=== PATIENT | female | born 1950 | race Caucasian/White ===

== ENCOUNTER 2018-10-01 14:49 | Emergency (ER) | payer MEDICARE, OTHER ==
[~2018-10-01] VITALS: Ht 157.5 cm; Wt 63.5 kg
[~2018-10-01 14:49] MED LIST: ASPIRIN CHEW81 MG PO; CEFUROXIME250 MG PO; EFFIENT10 MG PO; FAMOTIDINE20 MG PO; GLUCOPHAGE850 MG PO; GLUCOTROL XL10 MG PO; LIPITOR20 MG PO; LISINOPRIL10 MG PO; MELATONIN 3 MG1 EACH PO; NITROSTAT0.4 MG SL; TOPROL XL25 MG PO
--- OUTSIDE RECORDS SUMMARY | 2018-10-01 14:52 | XMS REPORT | Summary of Care ---
Author Author Milton Yip M.A. Organization Unknown Address [facility] Phone Unavailable Care Team Providers Care Fishing Accessories Maker Name Role Phone SIVA GU M.D. Unavailable Unavailable Milton Yip M.A. Unavailable Unavailable IRMA MILLER M.D. Unavailable Unavailable [place], SIVA Rodriguez Unavailable Unavailable Unavailable Unavailable Functional Status Name Dates Details Functional status health issues are not documented Status: Name Dates Details Cognitive status health issues are not documented Status: Problems Name Dates Details CAD, multiple vessel (414.00, I25.10) Status: Active Encounter for diabetic foot exam (250.00, E11.9) Status: Active Lower abdominal pain (789.09, R10.30) Status: Active Severe left groin pain (789.09, R10.30) Status: Active Left hip pain (719.45, M25.552) Status: Active Strain of left hip (843.9, S76.012A) Status: Active Lumbar facet arthropathy (721.3, M47.816) Status: Active Acute lumbar radiculopathy (724.4, M54.16) Status: Active 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, M51.26) Status: Active Greater trochanteric bursitis of left hip (726.5, M70.62) Status: Active Right knee pain (719.46, M25.561) Status: Active Flu-like symptoms (780.99, R68.89) Status: Active Vertigo (780.4, R42) Status: Active Urinary tract infection (599.0, N39.0) Status: Active Acute purulent bronchitis (466.0, J20.8) Status: Active Diabetes mellitus type 2, controlled (250.00, E11.9) Status: Active Hypothyroidism (244.9, E03.9) Status: Active Hyperlipidemia (272.4, E78.5) Status: Active Colonoscopy refused (V64.2, Z53.20) Status: Active Colon cancer screening (V76.51, Z12.11) Status: Active Mammogram declined (V64.2, Z53.20) Status: Active Need for hepatitis C screening test (V73.89, Z11.59) Status: Active Medicare annual wellness visit, initial (V70.0, Z00.00) Status: Active Medications Name Dates Details Aspirin EC 81 MG Oral Tablet Delayed Release Active Atorvastatin Calcium 40 MG Oral Tablet TAKE 1 TABLET DAILY * Quantity: 90 Refills: 1 SIVA GU M.D. * Start : 23-Jul-2017 Active Famotidine 20 MG Oral Tablet TAKE ONE (1) TABLET(S) BY MOUTH TWICE A DAY. * Quantity: 60 Refills: 3 SIVA GU M.D. * Start : 22-Jun-2017 Active Levothyroxine Sodium 50 MCG Oral Tablet TAKE ONE (1) TABLET(S) BY MOUTH ONCE A DAY. * Quantity: 90 Refills: 1 SIVA GU M.D. * Start : 03-Jun-2017 Active Melatonin 3 MG Oral Tablet * Refills: 0 Active Metoprolol Succinate ER 25 MG Oral Tablet Extended Release 24 Hour TAKE 1 TABLET DAILY. * Refills: 0 Active Nitroglycerin 0.4 MG Sublingual Tablet Sublingual DISSOLVE 1 TABLET UNDER THE TONGUE NEEDED FOR CHEST PAIN. * Refills: 0 Active Lisinopril 10 MG Oral Tablet * Refills: 0 Active 30 Tablet Bottle Co Q 10 100 MG Oral Capsule TAKE DIRECTED. * Refills: 0 * Start : 31-May-2017 Active Meclizine HCl - 25 MG Oral Tablet TAKE 1 TABLET 3 TIMES DAILY NEEDED. * Quantity: 20 Refills: 2 IRMA MILLER M.D. * Start : 16-Nov-2017 Active Sulfamethoxazole-Trimethoprim 800-160 MG Oral Tablet TAKE 1 TABLET TWICE DAILY * Quantity: 10 Refills: 0 SIVA GU M.D. * Start : 25-Jan-2018 Active Brilinta 90 MG Oral Tablet TAKE 1 TABLET TWICE DAILY DIRECTED. * Refills: 0 Active Onglyza 5 MG Oral Tablet TAKE 1 TABLET BY MOUTH DAILY * Quantity: 21 Refills: 0 SIVA GU M.D. * Start : 22-Aug-2018 Active Allergies and Adverse Reactions Name Dates Details Demerol SOLN (Allergy) Status: Active Past Medical History Name Dates Details History of Bilateral hearing loss (389.9, H91.93) Status: Resolved History of diabetes mellitus (V12.29, Z86.39) Status: Resolved History of Heart problem (429.9, I51.9) Status: Resolved History of thyroid disorder (V12.29, Z86.39) Status: Resolved History of Vision problem (V41.0, H54.7) Status: Resolved Procedures Procedure Dates Details History of Heart surgery Completed History of Tonsillectomy Completed History of Adenoidectomy Completed History of Hysterectomy Completed History of Appendectomy Completed Immunization Name Dates Details Fluzone Quadrivalent 0.5 ML Intramuscular Suspension Prefilled Syringe on: 22-Mar-2017 Family History Name Dates Details Family history of Type 2 diabetes mellitus with other ophthalmic complication (250.50, E11.39) Status: Active Family history of cerebrovascular accident (CVA) (V17.1, Z82.3) Status: Active Family history of Status: Active Name Dates Details Family history of Status: Active Family history of myocardial infarction (V17.3, Z82.49) Status: Active Family history of diabetes mellitus (V18.0, Z83.3) Status: Active Family history of hypertension (V17.49, Z82.49) Status: Active Family history of cardiac disorder (V17.49, Z82.49) Status: Active Social History Name Dates Details - Status: Name Dates Details Former smoker Vital Signs Date Test Result Details [id number] BP Systolic 169 mm[Hg] Status: Comments: Location: LUE; Position: Sitting BP Diastolic 75 mm[Hg] Status: Comments: Location: LUE; Position: Sitting Height 63 in Status: Weight 143.1875 lb Status: Body Mass Index Calculated 25.36 kg/m2 Status: Body Surface Area Calculated 1.68 m2 Status: Temperature 97.8 f Status: Comments: Method: Temporal Heart Rate 74 /min Status: Respiration Rate 16 /min Status: Physical Findings 0 Status: Comments: Pain Scale Physical Findings 0 Status: Comments: Alcohol Screen - How many times in the past yr have you had 5 (for M) or 4 (for F) or 4 (for all > 65yrs) or more drinks in a day? Physical Findings 4 Status: Comments: PHQ-9 Adult Depression Screening Results Date Description Value Details :11 [QH] LIPID PANEL WITH REFLEX TO DIRECT LDL CHOLESTEROL, TOTAL 128 mg/dl (Normal) Range: <200 HDL CHOLESTEROL 58 mg/dl (Normal) Range: >50 TRIGLYCERIDES 61 mg/dl (Normal) Range: <150 LDL-CHOLESTEROL 56 {MG/DL__CAL} (Normal) Comments: Reference range: <100 Desirable range <100 mg/dL for primary prevention; <70 mg/dL for patients with CHD or diabetic patients with > or=2 CHD risk factors. LDL-C is now calculated using alisha Cunningham calculation, which is a validated novel method providing better accuracy than the Friedewald equation in the estimation of LDL-C. Finn MADRIGAL et al. KAYLEEN. 2013;310(19): 7322-9102 (http:/ /getbetter!.[employer]/faq/EDL131) CHOL/HDLC RATIO 2.2 {CALC} (Normal) Range: <5.0 NON HDL CHOLESTEROL 70 {MG/DL__CAL} (Normal) Range: <130 Comments: For patients with diabetes plus 1 major ASCVD risk factor, treating to a non-HDL-C goal of <100 mg/dL (LDL-C of <70 mg/dL) is considered a therapeutic option. :11 [QLH] MICROALBUMIN, RANDOM URINE (W/CREATININE) Comments: Reference RangeNot established CREATININE, RANDOM URINE 68 mg/dl (Normal) Range: 20-275 MICROALBUMIN 0.9 mg/dl (Normal) Comments: Reference RangeNot established MICROALBUMIN/CREATININE RATIO, RANDOM URINE 13 {MCG/MG_CRE} (Normal) Range: <30 Comments: The ADA defines abnormalities in albuminexcretion as follows: Category Result (mcg/mg creatinine) Normal <30Microalbuminuria 30-299 Clinical albuminuria > AN=356 The ADA recommends that at least two of threespecimens collected within a 3-6 month period beabnormal before considering a patient to bewithin a diagnostic category. :11 [QLH] CMP W/EGFR GLUCOSE 143 mg/dl (Above high threshold) Range: 65-99 Comments: Fasting reference interval For someone without known diabetes, a glucosevalue >125 mg/dL indicates that they may havediabetes and this should be confirmed with afollow-up test. UREA NITROGEN (BUN) 13 mg/dl (Normal) Range: 7-25 CREATININE 0.58 mg/dl (Normal) Range: 0.50-0.99 Comments: For patients >49 years of age, the reference limitfor Creatinine is approximately 13% higher for peopleidentified as -Eth[place]ian. eGFR NON- 96 {ML/MIN/1.7} (Normal) Range: > OR=60 eGFR 111 {ML/MIN/1.7} (Normal) Range: > OR=60 BUN/CREATININE RATIO NOT APPLICABLE {CALC} Range: 6-22 SODIUM 143 mmol/L (Normal) Range: 135-146 POTASSIUM 4.9 mmol/L (Normal) Range: 3.5-5.3 CHLORIDE 106 mmol/L (Normal) Range: 98-110 CARBON DIOXIDE 28 mmol/L (Normal) Range: 20-32 CALCIUM 9.7 mg/dl (Normal) Range: 8.6-10.4 PROTEIN, TOTAL 6.8 g/dl (Normal) Range: 6.1-8.1 ALBUMIN 4.4 g/dl (Normal) Range: 3.6-5.1 GLOBULIN 2.4 {G/DL__CALC} (Normal) Range: 1.9-3.7 ALBUMIN/GLOBULIN RATIO 1.8 {CALC} (Normal) Range: 1.0-2.5 BILIRUBIN, TOTAL 0.3 mg/dl (Normal) Range: 0.2-1.2 ALKALINE PHSPHATASE 61 u/l (Normal) Range: 33-130 AST 19 u/l (Normal) Range: 10-35 ALT 17 u/l (Normal) Range: 6-29 25-Aug-20188:11 [[facility]] URINALYSIS, COMPLETE COLOR YELLOW (Normal) Range: YELLOW APPEARANCE CLEAR (Normal) Range: CLEAR SPECIFIC GRAVITY 1.013 (Normal) Range: 1.001-1.035 PH 5.5 (Normal) Range: 5.0-8.0 GLUCOSE NEGATIVE (Normal) Range: NEGATIVE BILIRUBIN NEGATIVE (Normal) Range: NEGATIVE KETONES NEGATIVE (Normal) Range: NEGATIVE OCCULT BLOOD NEGATIVE (Normal) Range: NEGATIVE PROTEIN NEGATIVE (Normal) Range: NEGATIVE NITRITE NEGATIVE (Normal) Range: NEGATIVE LEUKOCYTE ESTERASE 1+ (Abnormal) Range: NEGATIVE WBC 0-5 {/HPF} (Normal) Range: < OR=5 RBC 0-2 {/HPF} (Normal) Range: < OR=2 SQUAMOUS EPITHELIAL CELLS 0-5 {/HPF} Range: < OR=5 BACTERIA NONE SEEN {/HPF} (Normal) Range: NONE SEEN HYALINE CAST NONE SEEN {/LPF} (Normal) Range: NONE SEEN :11 [QL] CBC (INCLUDES DIFF/PLT) WHITE BLOOD CELL COUNT 6.5 {Thousand/u} (Normal) Range: 3.8-10.8 RED BLOOD CELL COUNT 4.62 {Million/uL} (Normal) Range: 3.80-5.10 HEMAGLOBIN 13.3 g/dl (Normal) Range: 11.7-15.5 HEMATOCRIT 40.6 % (Normal) Range: 35.0-45.0 MCV 87.9 fL (Normal) Range: 80.0-100.0 MCH 28.8 pg (Normal) Range: 27.0-33.0 MCHC 32.8 g/dl (Normal) Range: 32.0-36.0 RDW 14.1 % (Normal) Range: 11.0-15.0 PLATELET COUNT 316 {Thousand/u} (Normal) Range: 140-400 MPV 10.4 fL (Normal) Range: 7.5-12.5 ABSOLUTE NEUTROPHILS 4147 {cells/uL} (Normal) Range: 7438-1056 ABSOLUTE LYMPHOCYTES 1651 {cells/uL} (Normal) Range: 850-3900 ABSOLUTE MONOCYTES 501 {cells/uL} (Normal) Range: 200-950 ABSOLUTE EOSINOPHILS 169 {cells/uL} (Normal) Range: 15-500 ABSOLUTE BASOPHILS 33 {cells/uL} (Normal) Range: 0-200 NEUTROPHILS 63.8 % (Normal) LYMPHOCYTES 25.4 % (Normal) MONOCYTES 7.7 % (Normal) EOSINOPHILS 2.6 % (Normal) BASOPHILS 0.5 % (Normal) :11 [QL] HEPATITIS C ANTIBODY HEPATITIS C ANTIBODY NON-REACTIVE (Normal) Range: NON-REACTIVE SIGNAL TO CUT-OFF 0.03 (Normal) Range: <1.00 Comments: HCV antibody was non-reactive. There is no laboratory evidence of HCV infection. In most cases, no further action is required. However,if recent HCV exposure is suspected, a test for HCV RNA(test code 97323) is suggested. For additional information please refer tohttp://education.[employer]/faq/YYH12w4(This link is being provided for informational/educational purposes only.) :11 [QL] T4, FREE T4, FREE 1.3 ng/dl (Normal) Range: 0.8-1.8 :11 [QL] TSH, 3RD GENERATION TSH 3.54 {MIU/L} (Normal) Range: 0.40-4.50 :11 [QL] HEMOGLOBIN A1c Comments: REPORT COMMENT:FASTING:YES HEMOGLOBIN A1c 6.7 {%_of_total} (Above high threshold) Range: <5.7 Comments: For someone without known diabetes, a hemoglobin E2wukoqe of 6.5% or greater indicates that they may have diabetes and this should be confirmed with a follow-up test. For someone with known diabetes, a value <7% indicates that their diabetes is well controlled and a value greater than or equal to 7% indicates suboptimal control. A1c targets should be individualized based on duration of diabetes, age, comorbid conditions, and other considerations. Currently, no consensus exists regarding use ofhemoglobin A1c for diagnosis of diabetes for children. 25-Fcr-62969:00 [Q] FECAL GLOBIN BY IMMUNOCHEM. (MEDICARE) [id number] Comments: FECAL GLOBIN BY IMMUNOCHEM. (MEDICARE) MICRO NUMBER: [id number] TEST STATUS: FINAL SPECIMEN SOURCE: [facility] () FOBT TEST CARD SPECIMEN QUALITY: ADEQUATE RESULT: Not DetectedNO COLLECTION DATE RECEIVED. WE HAVE USEDTHE DATE THE SPECIMEN WAS RECEIVED BY THISLABORATORY THE COLLECTION DATE. IF THISIS INCORRECT, PLEASE CONTACT CLIENT SERVICES.PHONE NUMBER: [phone] Plan of Care Name Dates Details Planned Observations Planned Goals not documented Planned Encounters Appointment; SIVA GU M.D. On: 23-Dec-2018 12:30 Instructions Name Dates Details Instructions not documented Encounters Appointment; SIVA GU M.D. Encounter Diagnosis: Problem not documented On: 13-Jan-2017 14:00 Appointment; SIVA GU M.D. Encounter Diagnosis: Problem not documented On: 10-Mar-2017 14:30 Appointment; SIVA GU M.D. Encounter Diagnosis: Problem not documented On: 15-Mar-2017 13:30 Appointment; SIVA GU M.D. Encounter Diagnosis: Problem not documented On: 22-Mar-2017 11:00 Appointment; [facility] [place] Encounter Diagnosis: Problem not documented On: 22-Mar-2017 14:00 Appointment; CHEYANNE SALMON M.D. Encounter Diagnosis: Problem not documented On: 25-Mar-2017 13:30 Appointment; CHEYANNE SALMON M.D. Encounter Diagnosis: Problem not documented On: 02-Apr-2017 10:15 Appointment; SIVA GU M.D. Encounter Diagnosis: Problem not documented On: 02-Jun-2017 12:30 Appointment; SIVA GU M.D. Encounter Diagnosis: Problem not documented On: 26-Aug-2017 14:30 Appointment; IRMA MILLER M.D. Encounter Diagnosis: Problem not documented On: 16-Nov-2017 11:00 Appointment; SIVA GU M.D. Encounter Diagnosis: Problem not documented On: 20-Jan-2018 13:30 Appointment; SIVA GU M.D. Encounter Diagnosis: Problem not documented On: 25-Apr-2018 9:00 Appointment; SIVA GU M.D. Encounter Diagnosis: Problem not documented On: 30-May-2018 12:30 Appointment; SIVA GU M.D. Encounter Diagnosis: Problem not documented On: 22-Aug-2018 12:30
[2018-10-01] MEDS ORDERED: ASPIRIN 81 MG CHEW TAB PO ONE (15:00)
[2018-10-01 15:39] LABS: BASOPHILS % 0.5 % (0.0-1.0); EOSINOPHILS # (AUTO) 0.2 (0.0-0.4); EOSINOPHILS % 2.4 % (0.0-6.0); HEMATOCRIT 44.8 % (34.2-44.1); HEMOGLOBIN 14.8 g/dL (12.0-16.0); LYMPHOCYTES # (AUTO) 2.2 (1.0-3.2); LYMPHOCYTES % 34.9 % (18.0-39.1); MEAN CORPUSCULAR HEMOGLOBIN 28.7 pg (28-32); MONOCYTES # (AUTO) 0.4 (0.2-0.8); MONOCYTES % 6.9 % (4.4-11.3); NEUTROPHILS # (AUTO) 3.4 (2.1-6.9); PLATELET COUNT 249 x10e3/uL (140-360); RED BLOOD COUNT 5.15 x10e6/uL (3.6-5.1); RED CELL DISTRIBUTION WIDTH 13.5 % (11.7-14.4)
[2018-10-01] MEDS ORDERED: LISINOPRIL10 MG PO (15:39)
[2018-10-01] MEDS ORDERED: ATORVASTATIN CA20 MG PO (15:43)
[2018-10-01] MEDS ORDERED: LEVOTHYROXINE50 MCG PO (15:43)
[2018-10-01] MEDS ORDERED: METFORMIN HCL500 M1 PO (15:43)
[2018-10-01 15:53] LABS: CLARITY,URINE CLEAR (CLEAR); COLOR,URINE COLORLESS (YELLOW); LEUKOCYTE ESTERASE ,URINE NEGATIVE (NEGATIVE); NITRITE,URINE NEGATIVE (NEGATIVE); PROTEIN,URINE DIPSTICK NEGATIVE (NEGATIVE)
[2018-10-01 15:54] LABS: AMPHETAMINES SCREEN,URINE NEGATIVE (NEGATIVE); BENZODIAZEPINES SCREEN,URINE NEGATIVE (NEGATIVE); BILIRUBIN,URINE NEGATIVE (NEGATIVE); INR 0.84; KETONES,URINE NEGATIVE (NEGATIVE); PHENCYCLIDINE SCREEN,URINE NEGATIVE (NEGATIVE); URINE UROBILINOGEN 0.2 mg/dL (0.2 - 1)
[2018-10-01 16:03] LABS: EPITHELIAL CELLS,URINE FEW /LPF
--- NOTE | 2018-10-01 16:05 | Diagnostic Imaging Report ---
Examination: CT BRAIN WO CONTRAST History: Dizziness; headache; loss of vision. Comparison studies:None Technique: Axial images were obtained from the skull base to the vertex. Coronal and sagittal images reconstructed from the axial data. Dose modulation, iterative reconstruction, and/or weight based adjustment of the mA/kV was utilized to reduce the radiation dose to as low as reasonably achievable. Intravenous contrast: None Findings: Scalp: No abnormalities. Bones: No fractures, blastic or lytic lesions. Brain sulci: Appropriate for age. 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 . Extra-axial space: No abnormalities. Parenchyma: No masses, hemorrhage, or acute or chronic cortical based vascular insults.. Sellar/suprasellar region: No abnormalities. Craniocervical junction: Patent foramen magnum. No Chiari one malformation. Incidental findings: Atherosclerotic calcification of the cavernous and supraclinoid internal carotid and V4 segments of the bilateral vertebral arteries.. Impression: No acute abnormalities. 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 Signed by: Dr. Keila Mims M.D. on 10/01/2018 4:02 PM
[2018-10-01 16:08] LABS: ALANINE AMINOTRANSFERASE 20 IU/L (0-55); ALBUMIN 4.7 g/dL (3.5-5.0); ALBUMIN/GLOBULIN RATIO 1.2 (0.8-2.0); ALKALINE PHOSPHATASE 70 IU/L (40-150); ANION GAP 15.5 mmol/L (8-16); BLOOD UREA NITROGEN 10 mg/dL (7-26); BUN/CREATININE RATIO 14 (6-25); CALCIUM 10.3 mg/dL (8.4-10.2); CARBON DIOXIDE 25 mmol/L (22-29); CHLORIDE 106 mmol/L (98-107); CREATINE KINASE 209 IU/L (29-168); CREATININE, SERUM 0.72 mg/dL (0.57-1.11); EST GLOMERULAR FILTRATION RATE > 60 ML/MIN (60-); GLUCOSE 113 mg/dL (74-118); POTASSIUM 4.5 mmol/L (3.5-5.1); SODIUM 142 mmol/L (136-145)
[2018-10-01] MEDS ORDERED: NIFEDIPINE10 MG PO (17:49)
[2018-10-01] MEDS ORDERED: MECLIZINE HCL25 M1 PO (17:49)
[2018-10-01 17:50] VITALS: BP 161/72
== END 2018-10-01 17:58 | disposition home or self-care (01) ==
LOC: ER 14:51
DX: R53.1 Weakness (principal); H81.13 Benign paroxysmal vertigo, bilateral; I10 Essential (primary) hypertension
CPT/HCPCS: 36415; 70450; 80053; 80307; 81001; 82550; 82553; 84484; 85025; 85610; 85730; 93005; 99284